=== PATIENT | female | born 1990 | race Two or more races ===

== ENCOUNTER 2020-08-13 06:51 | Emergency (ER) | payer OTHER ==
[~2020-08-13] VITALS: Ht 154.9 cm; Wt 57.6 kg
[2020-08-14] MEDS ORDERED: ALLERGY RELIEF10 M3 PO (12:30)
[2020-08-14] MEDS ORDERED: MEDROLPACK PO (12:30)
== END 2020-08-13 09:16 | disposition home or self-care (01) ==
LOC: ER 06:51
DX: R21 Rash and other nonspecific skin eruption (principal); L29.8 Other pruritus; T78.49XA Other allergy, initial encounter; X58.XXXA Exposure to other specified factors, initial encounter

== ENCOUNTER 2020-08-14 10:08 | Emergency (ER) | payer OTHER ==
[~2020-08-14] VITALS: Ht 154.9 cm; Wt 58.1 kg
[2020-08-14] MEDS ORDERED: ALLERGY RELIEF10 M3 PO (12:30)
[2020-08-14] MEDS ORDERED: MEDROLPACK PO (12:30)
== END 2020-08-14 12:44 | disposition home or self-care (01) ==
LOC: ER 10:08
DX: R21 Rash and other nonspecific skin eruption (principal)